=== PATIENT | male | born 1940 | race Caucasian/White ===

== ENCOUNTER 2017-08-26 14:42 | Outpatient (CLI) | payer MEDICARE, OTHER ==
[2017-08-26] MEDS ORDERED: IOPAMIDOL-300 100 ML VIAL ONE (15:14)
[2017-08-26] MEDS ORDERED: IOPAMIDOL-300 100 ML VIAL IVP ONE (16:15)
--- NOTE | 2017-08-27 10:19 | CT Report ---
CT IVP: 08/26/2017 CLINICAL INDICATION: Gross hematuria. TECHNIQUE: Axial CT images of the abdomen and pelvis were obtained prior to and following 100 mL Isovue 300 intravenously, using split bolus technique. COMPARISON: CT abdomen 12/19/2008. FINDINGS: Limited evaluation of the lung bases is unremarkable. ABDOMEN: On the unenhanced images, there is no evidence of nephrolithiasis or hydronephrosis. The kidneys demonstrate symmetric uptake and excretion of contrast. No renal parenchymal lesion or collecting system lesion is seen. A small cyst in the lateral right lobe of the liver is stable from previous. The spleen, pancreas and adrenal glands appear unremarkable. The patient is status post cholecystectomy. No bowel dilatation, free gas, or free fluid is present. No abdominal adenopathy is present. PELVIS: The urinary bladder demonstrates trabeculation of the lezama. No obvious bladder mass is seen, but sensitivity is limited by trabeculations. The distal ureters appear unremarkable. Sigmoid diverticulosis is present, without CT evidence of diverticulitis. No free fluid or pelvic adenopathy is present. Osseous structures demonstrate degenerative changes. IMPRESSION: NO UPPER TRACT ETIOLOGY FOR THE PATIENT'S HEMATURIA IS IDENTIFIED. CONSIDER CORRELATION WITH CYSTOSCOPY. DIVERTICULOSIS, WITHOUT CT EVIDENCE OF DIVERTICULITIS. CHANGES OF CHOLECYSTECTOMY. CT DOSE REDUCTION STATEMENT In accordance with CT protocol optimization, one or more of the following dose reduction techniques were utilized for this exam: automated exposure control, adjustment of mA and/or KV based on patient size, or use of iterative reconstructive technique. TD: 08/27/2017 10:02
== END 2017-08-26 14:43 | disposition home or self-care (01) ==
LOC: DI 14:42
PROVIDERS: ATTEND Physician Assistant
DX: R31.0 Gross hematuria (principal); K57.30 Diverticulosis of large intestine without perforation or abscess without bleeding; Z90.49 Acquired absence of other specified parts of digestive tract
CPT/HCPCS: 74178; Q9967